=== PATIENT | female | born 2000 | race Caucasian/White ===

== ENCOUNTER 2024-10-17 11:45 | Outpatient (CLI) | payer BC, SELFPAY ==
[2024-10-17 18:28] LABS: Basophils # 0.1 K/mm3 (0-0.2); Basophils % 0.6 % (0.1-2.0); Eosinophils # 0.1 K/mm3 (0.0-0.4); Eosinophils % 1.8 % (0.1-12.0); Hematocrit 45.8 % (37.0-47.0); Hemoglobin 15.2 g/dL (12.2-16.2); Lymphocytes # 2.8 K/mm3 (0.7-4.5); Lymphocytes % 35.8 % (10-50); Mean Corpuscular HGB Conc 33.2 g/dL (31.8-35.4); Mean Corpuscular Hemoglobin 28.2 pg (27.0-31.2); Mean Platelet Volume 10.4 fl (7.4-10.4); Monocytes # 0.4 K/mm3 (0.1-1.0); Monocytes % 4.5 % (1.7-9.3); Neutrophils # 4.5 K/mm3 (1.8-7.8); Neutrophils % 56.9 % (37.0-80.0); Platelet Count 402 K/mm3 (142-424); Red Blood Count 5.39 M/mm3 (4.20-5.40); Red Cell Distribution Width 12.5 % (11.5-17.5); White Blood Count 7.8 K/mm3 (4.8-10.8)
[2024-10-17 19:30] LABS: Albumin Level 5.2 g/dl (3.5-5.0); Chloride 99 mmol/L (98-107); Potassium 4.4 mmoL/L (3.5-5.1); Sodium 137 mmol/L (136-145)
[2024-10-17 19:32] LABS: Alanine Aminotransferase 38 U/L (12-78); Aspartate Amino Transferase 33 U/L (14-36); Blood Urea Nitrogen 13 mg/dl (7-17); Estimated Glomerular Filt Rate 198 ml/min (>60); GFR (African American) 239 ML/MIN (>60)
[2024-10-17 19:33] LABS: Albumin/Globulin Ratio 1.9 (1.1-1.8); Alkaline Phosphatase 82 U/L (38-126); Anion Gap 19.4 mEq/L (5-15); Bilirubin,Total 0.4 mg/dl (0.2-1.3); Calcium 9.7 mg/dl (8.4-10.2); Carbon Dioxide 23 mmol/L (22.0-30.0); Chol/HDL Ratio 4.8 (1-3.5); Cholesterol 179 mg/dl (140-200); Globulin 2.7 g/dL (1.3-3.2); Glucose 220 mg/dl (74-100); HDL Cholesterol 37 mg/dl (40-60); Total Protein,Serum 7.9 g/dl (6.3-8.2); Triglycerides 216 mg/dl (30-150); VLDL Cholesterol 43 mg/dL (0-40)
[2024-10-17 19:44] LABS: 25-OH Vitamin D, Total 15.6 ng/mL (30-100); Free T4 (Free Thyroxine) 1.09 ng/dl (0.78-2.19)
[2024-10-17 20:07] LABS: Direct LDL Cholesterol 114.41 mg/dL (100-129)
[2024-10-17 20:19] LABS: Thyroid Stimulating Hormone 1.53 uIU/mL (0.465-4.68)
== END 2024-10-17 23:59 | disposition home or self-care (01) ==
LOC: LAB.DROPOF 10-18 10:58
PROVIDERS: PCP Family Medicine; Visit Provider Family Medicine
DX: E11.9 Type 2 diabetes mellitus without complications (principal); E55.9 Vitamin D deficiency, unspecified; L90.0 Lichen sclerosus et atrophicus; L30.4 Erythema intertrigo; G43.909 Migraine, unspecified, not intractable, without status migrainosus
CPT/HCPCS: 80053; 80061; 82306; 84439; 84443; 85025

== ENCOUNTER 2025-04-03 08:48 | Emergency (ER) | payer BC, SELFPAY ==
[2025-04-03 08:58] VITALS: BP 129/76; PULSE 98; RESP 13; TEMP 37.1; O2SAT 99; BMI 33.8
--- NOTE | 2025-04-03 09:12 | HMH.EDGENADL ---
Discharge Plan Disposition Patient Disposition: Home, Self-Care Condition: Good Prescriptions Prescriptions: No Action (DME) Dexcom G7 Sensor Device See Rx Instructions .Route Qty: 3 5RF Rx Instructions: As directed betamethasone dipropionate 0.05 % ointment 1 applic topical DAILY Qty: 45 4RF Rx Instructions: please apply nightly for 12 weeks clobetasol 0.05 % ointment 1 applic topical BID Qty: 30 0RF Rx Instructions: apply BID to rash on legs and perineum buspirone 10 mg tablet 10 mg PO TID Qty: 90 5RF amitriptyline 50 mg tablet 50 mg PO HS Qty: 30 5RF sumatriptan succinate 100 mg tablet See Rx Instructions PO .COMPLEX Qty: 9 5RF Rx Instructions: take 1 tab at onset of headache; if no relief, may repeat 1 tab after at least 2 hrs; max = 2 tabs/24 hrs PO terbinafine HCl [Lamisil AT] 1 % cream 1 applic topical BID Qty: 30 0RF Rx Instructions: apply bid to rash in groin, and in folds behind knees. mupirocin 2 % ointment 1 applic topical BID Qty: 15 0RF Rx Instructions: apply bid x 7 days to skin lesion mid lower back (DME) Dexcom G7 Machine Striper Misc See Rx Instructions .Route Qty: 1 0RF Rx Instructions: As directed Ozempic 1 mg/dose (4 mg/3 mL) pen injector 1 mg SQ WEEKLY Qty: 3 0RF Referrals Follow up/Referrals: Kirk Plaza MD [Primary Care Provider, Family Practice] - See instructions Activity Restrictions/Add. Instructions Additional Instructions/Restrictions: Take Tylenol and ibuprofen every 6 hours for the next [address] heat and ice on the areas that are sore. You can use the crutches as needed to bear weight and you can start to put more weight on the right lower extremity as tolerated. If you continue to have severe pain and unable to ambulate in 7 to 10 days please return to the emergency department or follow-up with your primary care provider. Clinical Impressions Clinical Impression: Ankle sprain Instructions Patient Instructions: DI for Ankle Sprain Print Language Print Language: Citizen Of [place] Discharge ED Provider: Chelly Dietrich Adult HPI General Chief complaint: PAIN Stated complaint: [id number]- Pain/swelling/ tingling R ankle Time Seen by Provider: 04/03/25 08:53 Mode of Arrival: Wheelchair Source of Information: Patient Description of Symptoms (Recalled from ER Triage Doc. by RN): pt presents to ED with c/o right ankle pain. pt reports she was walking down the stairs in the rain and she twisted her right ankle. pt reprots she felt her ankle pop. pt reports pain from toes to knees. pt reports swelling noted at ankle. History of Present Illness HPI narrative: Patient is a 25-year-old female with no significant past medical history who presented to the emergency department with right ankle pain. Patient states that she fell twisted her right ankle. Patient is reporting pain at her right ankle up to her right knee. Patient was able to get up and initially able to bear weight but then reported worsening pain and had to get help from her dad. Patient denies any prior surgical history. Patient denies any hardware in the right ankle. Patient denies any numbness or weakness. Patient does not take any daily medications. Patient denies any other prior surgical history. Related Data Previous Rx's ?Medication ?Instructions ?Recorded amitriptyline 50 mg tablet 50 mg PO HS #30 tabs 10/17/24 blood-glucose,new autos delivery driver,cont #1 ea 10/17/24 (Dexcom G7 Machine Striper) buspirone 10 mg tablet 10 mg PO TID #90 tabs 10/17/24 clobetasol 0.05 % topical ointment 1 applic topical BID #30 grams 10/17/24 mupirocin 2 % topical ointment 1 applic topical BID #15 grams 10/17/24 sumatriptan succinate 100 mg tablet See Rx Instructions PO .COMPLEX #9 10/17/24 tabs terbinafine HCl 1 % topical cream 1 applic topical BID #30 grams 10/17/24 (Lamisil AT) betamethasone dipropionate 0.05 % 1 applic topical DAILY #45 grams 11/18/24 topical ointment blood-glucose sensor (Dexcom G7 #3 ea 11/18/24 Sensor device) semaglutide 1 mg/dose (4 mg/3 mL) 1 mg (0.75 mL) SQ WEEKLY #3 mL 12/20/24 subcutaneous pen injector ([employer]) Allergies Allergy/AdvReac Type Severity Reaction Status Date / Time No Known Allergies Allergy Verified 02/09/25 11:00 [facility] Disclaimer: The information contained in this section may have been updated after the patient was seen, as this information can be updated by other users. Medical History (Reviewed 02/09/25 @ 11: by Caesar Olmos MA) PCOS (polycystic ovarian syndrome) Migraine Intertrigo Lichen sclerosus Diabetes mellitus Surgical History (Reviewed 02/09/25 @ 11: by Caesar Olmos MA) Hx of appendectomy History of tonsillectomy and adenoidectomy H/O: Family History Other No significant family history Social History (Reviewed 02/09/25 @ 11: by Caesar Olmos MA) Smoking Status: Never smoker alcohol intake: former substance use type: denies use current occupational status: employed Travel in the last 8 weeks?: None Have you lived/traveled outside US in past 30 days?: No Contact w/someone who lives/traveled outside US past 30 days?: No Exposure to someone with infectious disease in past 14 days?: No Do you have a fever (greater than 100.4 F or 38 C)?: No Have you tested positive for COVID-19?: No Exposed to someone with COVID-19 in past 14 days?: No Do you have a sore throat?: No Do you have a cough?: No Do you have any weakness?: No Do you have any diarrhea?: No Are you experiencing any unusual bleeding?: No Do you have any muscle aches/pain?: No Do you have any abdominal pain?: No Are you experiencing loss of taste or smell?: No ROS Obtained: Yes All systems reviewed & no additional complaints except as documented and Yes Systems reviewed as appropriate & no additional complaints except as documented Physical Exam General General appearance: alert and in no apparent distress Head Head exam: atraumatic, normocephalic and normal inspection Eye Eye exam: Present normal appearance, PERRL and EOMI; Absent scleral icterus ENT ENT exam: Present normal exam and normal external ear exam Neck Neck exam: Present normal inspection and full ROM Chest Chest inspection: Present normal inspection, symmetric chest wall rise and other (2+ DP pulse in the right lower extremity) Respiratory Respiratory exam: Present normal lung sounds bilaterally; Absent respiratory distress or wheezes Cardiovascular Cardiovascular exam: Present regular rate, normal rhythm and normal heart sounds Abdominal Exam Abdominal exam: Present soft and distention; Absent tenderness, guarding or rebound Extremities Exam Extremities exam: Present normal inspection, full ROM and other (Right ankle with tenderness at the medial and lateral malleolus some tenderness along the lateral knee no swelling, no bruising, mildly decreased range of motion secondary to pain) Back Exam Back exam: Present normal inspection and full ROM Neurological Exam Neurological exam: Present alert, oriented X3 and other (Normal strength and sensation in the right lower extremity) Psychiatric Psychiatric exam: Present normal affect and normal mood Skin Skin exam: Present warm and dry Medical Decision Making Medical Records Screening: Per USPSTF and CDC recommendations, given the prevalence of disease in our region, it is our hospital?s policy to screen for HIV and viral Hepatitis for all patients aged 18 and over and those with ongoing risk factors. Reggie Inquiry Pt receiving controlled substance: No Vital Signs: 04/03/25 08:58 04/03/25 10:00 04/03/25 11:22 Temperature 98.8 F 98.7 F Temperature Source Oral Oral Pulse Rate 94 H 79 Pulse Rate [Left Radial] 98 H Respiratory Rate 13 18 15 Blood Pressure 133/70 114/76 Blood Pressure [Right Arm] 129/76 Blood Pressure Mean [Right Arm] 93 Blood Pressure Source Automatic Cuff Blood Pressure Source [Right Arm] Automatic Cuff Blood Pressure Position Supine Blood Pressure Position [Right Arm] Supine 02 Sat by Pulse Oximetry 99 96 Oxygen Delivery Method Room Air Room Air Lab Data Lab results reviewed: Yes I reviewed the patient's lab results. Orders (Tests/Meds): ED MEDICATIONS Discontinued Medications Generic Name Dose Route Start Last Admin Trade Name Freq PRN Reason Stop Dose Admin Oxycodone/Acetaminophen 1 each 04/03/25 09:27 04/03/25 09:59 Oxycodone 5mg W/Apap 325mg Tablet PO 04/03/25 09:28 1 each ONCE ONE Administration ORDERS Category Date Time Status Ankle XR -Right minimum 3 Views [XR ankle RT min 3V] Exams 04/03/25 09:27 Completed Stat Foot XR right minimum 3 views [XR foot RT min 3V] Stat Exams 04/03/25 09:27 Completed Knee XR right 3 views [XR knee RT 3V] Stat Exams 04/03/25 09:27 Completed Tibia/fibula XR right 2 views [XR tibia fibula RT 2V] Exams 04/03/25 09:27 Completed Stat Medical Decision Narrative: Patient is a 25-year-old female with no significant past medical history who presented to the emergency department with right ankle pain. On arrival, patient was hemodynamically stable with unremarkable vital signs. Differential includes but not limited to: Fracture, dislocation, sprain, strain, amongst others. Patient was given Tylenol, ibuprofen in the emergency department. X-rays were reviewed and interpreted by myself and showed no acute fracture dislocation or other acute pathology. Patient likely with a musculoskeletal sprain at this time. Patient was given an Tang bandage, patient was given crutches for symptomatic management. Patient was instructed to bear weight as tolerated continue symptomatic management at home. Return precautions were discussed and patient was otherwise discharged home in stable condition. Critical Care Critical Care Time Critical Care Time: No
--- OUTSIDE RECORDS SUMMARY | 2025-04-03 09:18 | XMS_ITS | Encounter Summary ---
Author Organization Healthcare Address [address] [place] [address] Care Team Providers Care Blending Tank Tender Helper Name Role Phone Susanna Anand APRN Primary Care Provider [phone] Reason for Visit * Reason Comments Med Refill Encounter Details Date Type Department Care Team (Late st Contact Info) Description 10/16/2022 [facility] [address] [place] [address] Susanna Anand APRN [address] [place] [address] Social History Tobacco Use Types Packs/Day Years Used Date Smoking Tobacco: Never Smokeless Tobacco: Never Alcohol Use Standard Drinks/Week Comments Not Currently 0 (1 standard drink = 0.6 oz pur e alcohol) PHQ-2 Answer Date Recorded Patient Health Questionnaire-2 Score 1 10/10/2022 [place] Depression Scale Answer Date Recorded [place] Depression Scale Total 13 10/31/2021 The thought of harming myself has occurred to me . Never 10/31/2021 PHQ-2A Answer Date Recorded Patient Health Questionnaire-2 Score 1 10/10/2022 Comments No Sex and Gender Information Value Date Recorded Sex Assigned at Female 08/26/2021 9:43 AM EST Legal Sex Female 8:02 PM EDT Gender Identity Female 08/26/2021 9:43 AM EST Sexual Orientation Straight 08/26/2021 9: 43 AM EST COVID-19 Exposure Response Date Recorded In the last 10 days, have yo u been in contact with someone who was confirmed or suspected to have Coronavirus/COVID-19? No / Unsure 10/10/2022 7:35 AM EST documented as of this encounter Miscellaneous Notes * Telephone Encounter - Chelly Dickens - 10/16/2022 12:03 PM EST Pt aware. * Telephone Encounter - Clementine Cantu - 10/16/2022 11:43 AM EST Returning call * Telephone Encounter - Chelly Dickens - 10/16/2022 11:38 AM EST Lmtrc x1 documented in this encounter Plan of Treatment Not on file documented as of this encounter Visit Diagnoses Not on filedocumented in this encounter Additional Health Concerns Assessment Noted Time A Body Mass Index follow-up plan has been documented for the patient 10/10/2022 12:33 PM EST documented as of this encounter Care Teams Blending Tank Tender Helper Relationship Specialty Start Date End Date Susanna Anand APRN [address] [place] [address] PCP - General Family Medicine 08/20/22 documented as of this encounter
--- OUTSIDE RECORDS SUMMARY | 2025-04-03 09:18 | XMS_ITS | Clinical Summary ---
Author Organization [facility] Address [address] [place] [phone] Phone Care Team Providers Care Manufacturing Plant Technician Name Role Phone Unavailable Primary Care Provider Unavailabl e Allergies No known active allergies Medications ibuprofen (ADVIL;MOTRIN) 600 mg Oral Tablet Take 1 Tab by mouth every 6 hours as needed for Pain. 60 Tab 9 Active acetaminophen 325 mg Oral Tab Take 2 Tabs by mouth every 4 hours as needed for Pain. 60 Tab 9 Active pioglitazone (ACTOS) 15 mg Oral TabletIndication s:Metabolic syndrome,Severe obesity (BMI 35.0-39.9) with comorbidity (HCC),Elevated blood sugar Take 1 Tab by mouth daily. 90 Tab 1 1 Active Additional Information Patient not taking.Reason: Therapy Completed, Reported on 01/20/2023 topiramate (TOPAMAX) 25 mg Oral TabletIndication s:Migraine with aura and with status migrainosus, not intractable TAKE 1 TABLET BY MOUTH EVERY DAY AT NIGHT 30 Tab 2 1 Active Additional Information Patient not taking.Reason: Therapy Completed, Reported on 01/20/2023 vit no.[id number] c ( VITAMIN) 27 mg iron- 800 mcg Oral TabletIndication s:Positive blood test Take 1 Tablet by mouth daily. 30 Tablet 8 1 Active Additional Information Patient not taking.Reason: Therapy Completed, Reported on 01/20/2023 sertraline (ZOLOFT) 25 mg Oral TabletIndication s:History of depression Take 1 Tablet by mouth daily. 30 Tablet 2 2 Active Additional Information Patient not taking.Reason: Therapy Completed, Reported on 01/20/2023 norgestimate-eth inyl estradioL (ORTHO TRI-CYCLEN;TRI-S PRINTEC) 0.18/0.215/0.25 mg-35 mcg (28) Oral TabletIndication s:Family planning Take 1 Tablet by mouth daily. 30 Tablet 8 2 Active Additional Information Patient not taking.Reason: Therapy Completed, Reported on 01/20/2023 fluconazole (DIFLUCAN) 150 mg Oral TabletIndication s:Yeast vaginitis 1 now and repeat in 1 week 2 Tablet 2 Active Additional Information Patient not taking.Reason: Therapy Completed, Reported on 01/20/2023 estradioL (ESTRACE) 0.01 % (0.1 mg/gram) Vagl Cream 3 Active clobetasoL (TEMOVATE) 0.05 % Top Ointment 3 Active progesterone (PROMETRIUM) 200 mg Oral Capsule Take 200 mg by mouth. 2 Active Active Problems Problem Noted Date Diagnosed Date Gastroesophageal reflux disease 01/20/2023 Right lower quadrant pain 10/13/2018 Metabolic syndrome 03/18/2018 Low HDL (under 40) 03/18/2018 Morbid obesity with BMI of 40.0-44.9, adult 02/20 Hyperuricemia w/o signs of i nflam arthrit and tophaceous dis 03/18/2018 Environmental allergies Immunizations Immunization Administration Dates Next Due DTaP 07/02/2005, 3,2001,2000,2001 HPV 9 Valent 05/12/2019 HPV Quadrivalent 10/06/2012,07/21/2012 Hepatitis A, Ped/Adol, 2 Dose 05/12/2019, 018 Hepatitis B, Unspecified Formulation 2001, 2001,2001 HiB, Unspecified Formulation 09/29/2002, 2001,2001,2000 IPV 07/02/2005, 2,2001,2000 MMR 07/02/2005,09/29/2002 Meningococcal Conjugate 11/11/2017,07/21/2012 PPD Test 10/05/2018 Tdap 07/21/2012 Varicella 07/21/2012,09/29/2002 Surgical History Surgery Date Site/Laterality Comments TONSILLECTOMY TYMPANOSTOMY TUBE PLACEMENT PE tubes WISDOM TOOTH EXTRACTION Bilateral LAPAROSCOPIC APPENDECTOMY 10/14/2018 N/A LAPAROSCOPIC APPENDECTOMY; Surgeon: Sheng Chavez MD; Location: [facility]; Service: General APPENDECTOMY SECTION 10/03/2021 Medical History Medical History Date Comments Depression Hx of migraines H/O: pneumonia History of snoring Hypertension PCOS (polycystic ovarian syndrome) 2018 Borderline diabetes Family History Medical History Relation Name Comments No Known Problems Brother Diabetes Father Gout Father Cancer Maternal Grandfather Diabetes Maternal Grandfather High Blood Pressure Maternal Grandfather High Cholesterol Maternal Grandfather Cancer Maternal Uncle Kidney Disease Maternal Uncle kidney ston es Liver Disease Maternal Uncle Stroke Maternal Uncle Cancer Mother Migraines Mother Osteoarthritis Mother lap band Mother 2009 Diabetes Paternal Grandfather Heart Disease Paternal Grandfather High Blood Pressure Paternal Grandfather High Cholesterol Paternal Grandfather Stroke Paternal Grandfather Cancer Paternal Grandmother colon c ancer Diabetes Paternal Grandmother High Blood Pressure Paternal Grandmother High Cholesterol Paternal Grandmother Relation Name Status Comments Brother Alive Father Alive Maternal Grandfather Maternal Uncle Mother Alive Paternal Grandfather Paternal Grandmother Social History Tobacco Use Types Packs/Day Years Used Date Smoking Tobacco: Never Smokeless Tobacco: Never Tobacco Cessation:Counseling Given: Not Answered Alcohol Use Standard Drinks/Week Comments Not Currently 0 (1 standard drink = 0.6 oz pur e alcohol) very rarely Sexually Active Control Partners Comments Not Currently Comments No Sex and Gender Information Value Date Recorded Sex Assigned at Not on file Legal Sex Female 5:19 AM EDT Gender Identity Not on file Sexual Orientation Not on file Obstetrics History Last Filed Vital Signs Vital Sign Reading Time Taken Comments Blood Pressure 144/86 01/20/2023 12:31 PM EDT Pulse 94 02/20/2022 10:53 AM EDT Temperature 36.6 C (97.9 F) 02/20/2022 10:53 AM EDT Respiratory Rate 20 02/20/2022 10:53 AM EDT Oxygen Saturation 97% 02/20/2022 10:53 AM EDT Inhaled Oxygen Concentration - - Weight 123.4 kg (272 lb) 03/20/2023 12:10 PM EDT Height 169.5 cm (5' 6.75 ) 03/20/2023 12:10 PM E DT Body Mass Index 42.92 03/20/2023 12:10 PM EDT Plan of Treatment Health Maintenance Due Date Last Done Comments Annual Wellness Exam 10/09/2021 10/09/2020 COVID-19 Vaccine ( season) 2024 Influenza Vaccine (#1) 2025 , 11/11/2017 (Declined), 09/12/2016 (Declined), Additional history exists Cervical Cancer Screening 06/11/2025 Pap Smear 06/11/2025 06/11/2022, 05/23, 06/11/2022 DTaP/TDaP/Td (8 - Td or Tdap) 07/05/2031 07/05/2021, 07/21/2012, 07/02/2005, Additional history exists Hepatitis B Vaccine Completed 2001, 2001, 2001 HPV Completed 05/12/2019, 09/21, 07/21/2012 Meningococcal B Vaccine Aged Out No l onger eligible based on patient's age to complete this topic Pneumococcal Vaccine 0-49 Aged Out No longer eligible based on patient's age to complete this topic Goals Goal Patient Goal Type Associated Problems Recent Progress Patient-Stated? Author Blood Pressure < 140/90 Blood Pressure 144/86(2022 12:31 PM EDT) No Katty Hackett Maintain a healthy diet, exercise regularly and maintain an ideal body weight General No Katty Hackett Insurance AETNA POS [employer] [facility] [place] [address] AET[employer] POS [employer] [facility] [place] [address] [facility] [place] [address] AETNA POS AUTO ACCIDENT GENERIC on file [employer] Advance Directives For more information, please contact: [phone] * Full Code (Latest Code Status on File) Date Activated Date Inactivated Comments 10/13/2018 6:46 PM 10/15/2018 2:30 PM
--- OUTSIDE RECORDS SUMMARY | 2025-04-03 09:18 | XMS_ITS | Clinical Summary ---
Author Organization Healthcare Address [address] [place] [address] Care Team Providers Care Sampler First Name Role Phone ChengSusanna Jacob RADFORD Primary Care Provider [phone] Allergies No known active allergies Medications sertraline (Zoloft) 25 MG tabletIndication s:Mild episode of recurrent major depressive disorder (CMS/HCC) Take 1 tablet (25 mg total) by mouth 1 (one) time each day. 90 tablet 1 08/11/2022 Active ibuprofen 800 MG tablet Take 1 tablet (800 mg total) by mouth every 8 (eight) hours if needed for headaches. 30 tablet 08/11/2022 Active semaglutide (Ozempic, 0.25 or 0.5 MG/DOSE,) 2 MG/1.5ML solution pen-injector inj. penIndications:C lass 3 severe obesity due to excess calories without serious comorbidity with body mass index (BMI) of 40.0 to 44.9 in adult Inject 0.375 mL (0.5 mg total) under the skin 1 (one) time per week. 1 each 10/10/2022 Active norgestimate-eth inyl estradiol (Sprintec 28) 0.25-35 MG-MCG tablet Take 1 tablet by mouth 1 (one) time each day. 84 tablet 4 10/24/2022 Active progesterone (Prometrium) 200 MG capsule Take 1 capsule (200 mg total) by mouth every night for 10 days. Take every 3 months to jump start period if hasn't had one on her own. 10 capsule 1 02/06/2023 Active clobetasol (Temovate) 0.05 % ointmentIndicati ons:Lichen sclerosus AAA QAM 60 g 3 02/09/2024 Active estradiol (Estrace) 0.1 MG/GM vaginal creamIndications :Lichen sclerosus Apply to vulva at bedtime as directed. 42.5 g 3 02/09/2024 Active Active Problems Problem Noted Date Diagnosed Date Subacute vaginitis 05/14/2022 Assessment & Plan (05/14/2022 5:03 PM EDT): - oneswab done today - Diflucan Rx sent - RTC as needed 36 weeks gestation of 09/16/2021 Type 2 diabetes mellitus aff ecting in third trimester, antepartum 09/16/2021 Vaginitis affecting pregnanc y in third trimester, antepartum 09/16/2021 Essential hypertension 07/18/2021 Hypertension 07/18/2021 High blood pressure 07/18/2021 Borderline high blood pressure 07/18/2021 Environmental allergies 05/08/2021 Right lower quadrant pain 10/13/2018 Hyperuricemia w/o signs of i nflam arthrit and tophaceous dis 03/18/2018 Metabolic syndrome 03/18/2018 Severe obesity (BMI 35.0-39.9) with comorbidity 03/18/2018 Immunizations Immunization Administration Dates Next Due DTaP 07/02/2005, 3,2001,08/05,2001 HPV 9-Valent 05/12/2019 HPV, Quadrivalent 10/06/2012,07/21/2012 Hep A, ped/adol, 2 dose 05/12/2019,11/11/2017 Hep B, Unspecified 2001,2001, 001 HiB, unspecified 09/29/2002, 2,2001,05/06 IPV 07/02/2005, 2,2001,05/06 Influenza, injectable, quadr ivalent, preservative free 06/21/2021 MMR 07/02/2005,09/29/2002 Meningococcal MCV4P 11/11/2017,07/21/2012 PPD Skin Test (TB Skin Test) 10/05/2018 Tdap 07/05/2021,07/21/2012 Varicella 07/21/2013,07/21/2012,09/29/2002 Family History Medical History Relation Name Comments Diabetes Father Melanoma Mother Relation Name Status Comments Father Mother Social History Tobacco Use Types Packs/Day Years Used Date Smoking Tobacco: Never Smokeless Tobacco: Never Tobacco Cessation:Counseling Given: Not Answered Alcohol Use Standard Drinks/Week Comments Not Currently 0 (1 standard drink = 0.6 oz pur e alcohol) PHQ-2 Answer Date Recorded Patient Health Questionnaire-2 Score 1 10/10/2022 Alderson Depression Scale Answer Date Recorded Alderson Depression Scale Total 13 10/31/2021 The thought [...] Orientation Straight 08/26/2021 9: 43 AM EST Last Filed Vital Signs Vital Sign Reading Time Taken Comments Blood Pressure 129/84 04/24/2023 10:43 AM EDT Pulse 100 04/24/2023 10:43 AM EDT Temperature 36.9 C (98.5 F) 11/07/2022 9:10 AM EST Respiratory Rate 14 04/24/2023 10:43 AM EDT Oxygen Saturation 98% 04/24/2023 10:43 AM EDT Inhaled Oxygen Concentration - - Weight 130 kg (285 lb 15 oz) 04/24/2023 10:43 AM EDT Height 170.2 cm (5' 7 ) 04/24/2023 10:43 AM EDT Body Mass Index 44.78 04/24/2023 10:43 AM EDT Plan of Treatment Health Maintenance Due Date Last Done Comments [facility]-/Child/Adol SDOH Screenings 2001 [facility]- SDOH Screenings 2019 [facility]-Adult SDOH Screenings 2019 [facility]-Pneumococcal Vaccine: Pediatrics (0 to 5 Years) and At-Risk Patients (6 to 49 Years) (1 of 2 - PCV) 2020 [facility]-Depression Screening 10/10/2023 10/10/2022, 10/22 [id number] Vaccine ( season) 2024 [facility]-Influenza Vaccine (#1) 2025 06/21/2021 [facility]-Pap Smear 06/11/2025 06/11/2022 [facility]-DTaP,Tdap,and Td Vaccines (8 - Td or Tdap) 07/05/2031 07/05/2021, 07/21/2012, 07/02/2005, Additional history exists [facility]-Zoster Vaccines (1 of 2) 2051 07/21/2013, 07/21/2012, 09/29/2002 [facility]-Hepatitis B Vaccines Completed 002, 2001, 2001 [facility]-HIB Vaccines Completed 09/29/2002, , 2001, Additional history exists [facility]-IPV Vaccines Completed 07/02/2005, , 2001, Additional history exists [facility]-Varicella Vaccines Completed 3, 07/21/2012, 09/29/2002 HPV Vaccines Completed 05/12/2019, 09/21, 07/21/2012 [facility]-Hepatitis A Vaccines Completed 05/12/2019, 10/23 [facility]-HIV Screening Completed 05/09/2021 [facility]-Hepatitis C Screening Completed 05/09/2021 [facility]-Diabetes: Hemoglobin A1C Discontinued 08/11/2022 [facility]-Obesity Intervention Completed 023, 11/07/2022, 10/24/2022, Additional history exists [facility]-Rotavirus Vaccines Aged Out No lo nger eligible based on patient's age to complete this topic Procedures Procedure Name Priority Date/Time Associated Diagnosis Comments HEMOGLOBIN A1C Routine 08/11/2022 1:13 PM EST Encounter to establish care Prediabetes Class 3 severe obesity due to excess calories without serious comorbidity with body mass index (BMI) of 40.0 to 44.9 in adult ([facility]) PAP TEST - CYTOLOGY Routine 06/11/2022 9 :33 AM EDT Encounter for annual routine gynecological examination HEPATITIS C ANTIBODY W/REFLEX TO HCV QUANT PCR Routine 05/09/2021 8:55 AM EDT Normal , incidental HIV 1/2 ANTIBODY/ANTIGEN SCREEN WITH REFLEX TO HIV I/II DIFFERENTIATION Routine 05/09/2021 8:55 AM EDT Normal , incidental from Last 3 Months or Most Recently Relevant to Health Maintenance Results * Hemoglobin A1c (08/11/2022 1:13 PM EST) Hemoglobin A1c 5.6 <5.7 % 08/11/2022 6:38 PM EST [facility] Blood Venous blood specimen / Unknown Venipuncture / Unknown 08/11/2022 1:13 PM EST 08/11/2022 1:19 PM EST Narrative [facility] - 08/11/2022 6:38 PM EST HA1C Interpretive Data: Diagnosis of Diabetes: Diabetic > or = 6.5% Pre-diabetic 5.7 to 6.4% Non-diabetic < or = 5.6% Glycemic Targets for Type I and Type II Diabetics: Non- Adults <7.0% Adults <6.0% Children and Adolescents <7.5% Source: [place] [employer]. Standards of medical care in diabetes,2017. Diabetes Care.2017:40 (suppl 1):S1-S135. HbA1c assay performed by an ion-exchange chromatography method that is certified traceable to the DCCT. us Susanna Anand APRN LAB BLOOD ORDERABLES Final Resu lt [facility] [address] [place] [address] * (ABNORMAL) Pap Smear (06/11/2022 9:33 AM EDT) Case Report Cytology Case: [id number] Authorizing Provider: Jacques Chavez MD Collected: 06/11/2022 0933 Ordering Location: Obstetrics & Gynecology Received: 06/12/2022 0940 First Screen: Georgia Moreno Pathologist: Lucila Soria MD Specimen: ThinPrep Pap Test, Liquid-Based Cervical/Vaginal, CERVICAL/VAGINAL 06/18/2022 1:43 PM EDT [facility] Interpretation LOW GRADE SQUAMOUS INTRAEPITHELIAL LESION (LSIL)(A) 06/18/2022 1:43 PM EDT [facility] at 1343 EDT Specimen Adequacy Satisfactory for evaluation; endocervical/joyner sformation zone component present. Slide scanned and imaged by [employer] System with manual review of all selected huerta. 06/18/2022 1:43 PM EDT [facility] Cervical cytology is a screening test primarily for squamous cancers and precursors and has associated false negative and positive results. New technologies such as liquid based sampling may decrease but will not eliminate all false negative results. Regular screening and follow-up of unexplained clinical signs and symptoms are recommended to minimize false negative results. Please see the ASCCP website (www.asccp.org)fo r followup recommendations. If HPV testing was requested, correlation with the results is suggested (please call Microbiology at [phone] for results). 06/18/2022 1:43 PM EDT [facility] Menstrual Status Not Applicable 05/23 1:43 PM EDT [facility] History of Hysterectomy Not Applicable 06/18/2022 1:43 PM EDT [facility] Contraceptive History Not Applicable 06/18/2022 1:43 PM EDT [facility] Screening Type Routine Screen 2021 1:43 PM EDT [facility] High Risk? No 06/18/2022 1:43 PM EDT [facility] HPV Testing Requested? Request HPV Testing if ASCUS (Women 25 Years or Older) 06/18/2022 1:43 PM EDT [facility] Previous Cancer History No 06/18/2022 1:43 PM EDT [facility] Clinical Information Z01.419 - Encounter for annual routine gynecological examination [ICD-10-CM] 06/18/2022 1:43 PM EDT [facility] Swab Vaginal and cervical cytologic material / Unknown Non-blood Collection / Unknown 06/11/2022 9:33 AM EDT 06/12/2022 9:40 AM EDT Jacques Chavez MD LAB CYTOLOGY ORDERABLES Final R esult Performing Organization Address [facility] Co de Phone Number [facility] [address] [place] [address] * HIV 1 & 2 Antibody/Antigen Screen (05/09/2021 8:55 AM EDT) HIV 1 & 2 Antibody/Anti gen Screen Nonreactive Nonreactive 05/09/2021 2:45 PM EDT [facility] Blood Venous blood specimen / Unknown Venipuncture / Unknown 05/09/2021 8:55 AM EDT 05/09/2021 1:58 PM EDT Result Felix Chavez MD LAB BLOOD ORDERABLES Final Resu lt Performing Organization Address [facility] Co de Phone Number [facility] [address] [place] [address] * Hepatitis C Antibody (05/09/2021 8:55 AM EDT) Hepatitis C Antibody Negative Negative 05/09/2021 2:45 PM EDT [facility] Blood Venous blood specimen / Unknown Venipuncture / Unknown 05/09/2021 8:55 AM EDT 05/09/2021 1:58 PM EDT Result Felix Chavez MD LAB BLOOD ORDERABLES Final Resu lt Performing Organization Address [facility] de Phone Number [facility] [address] [place] [address] from Last 3 Months or Most Recently Relevant to Health Maintenance Insurance [employer] Care Teams Sampler First Relationship Specialty Start Date End Date Susanna Anand APRN [address] [place] [address] PCP - General Family Medicine 08/20/22
--- OUTSIDE RECORDS SUMMARY | 2025-04-03 09:18 | XMS_ITS | Clinical Summary ---
Author Organization [facility] Address [address] [place] [address] Phone [email or web address] Care Team Providers Care Gage Maker Name Role Phone Unavailable Primary Care Provider Unavailabl e Allergies No known active allergies Medications topiramate (TOPAMAX) 25 MG tablet TAKE 1 TABLET BY MOUTH EVERY DAY AT NIGHT 11/05/2020 Active pioglitazone (ACTOS) 15 MG tablet Take 15 mg by mouth 1 (one) time each day. 10/09/2020 Active ondansetron (ZOFRAN) 4 MG tablet 12/24/2020 Active Active Problems No known active problems Social History Tobacco Use Types Packs/Day Years Used Date Smoking Tobacco: Never Smokeless Tobacco: Never Intimate Partner Violence Answer Date R ecorded Insults You Not on file 12/31/2020 Threatens You Not on file 12/31/2020 Screams at You Not on file 12/31/2020 Physically Hurt Not on file 12/31/2020 Intimate Partner Violence Score Not on file 12/31/2020 Stress Answer Date Recorded Stress in your Life Not on file 07/27/2024 Dealing with Stress 3 07/27/2024 Comments Unknown Sex and Gender Information Value Date Recorded Sex Assigned at Not on file Legal Sex Female 2:56 PM CDT Gender Identity Not on file Sexual Orientation Not on file Plan of Treatment Health Maintenance Due Date Last Done Comments Dental Cleaning/Exam 2001 HIV Screening 2001 Hepatitis C Screening 2001 HPV Immunization (3 - 2-dose series) 01/18/2013 10/06/2012, 07/21/2012 Cervical Cancer Screening 2017 Annual Preventive Exam 2019 Hep B Infection Screening - Triple Screen 2019 Tetanus Diphtheria and Pertussis Immunization (7 - Td or Tdap) 07/21/2022 07/21/2012, 07/02/2005, 09/29/2002, Additional history exists Covid-19 Immunization ( season) 2024 Influenza Immunization (#1) 2025 Hepatitis B Immunization Completed 002, 2001, 2001 HIB Immunization Completed 09/29/2002, , 2001, Additional history exists Polio Immunization Completed 07/02/2005, 0 2001, 2001, Additional history exists Varicella Immunization Completed 07/21/2012, 2002 Meningococcal Immunization Completed 11/11/2017, Hepatitis A Immunization Completed 05/12/2019, 10/23 Men B Immunization Aged Out No longer eligible based on patient's age to complete this topic Pneumococcal: Ped (0 to 5 Yrs) and At-Risk Member (6 to 64 Yrs) Aged Out No longer eligible based on patient's age to complete this topic Insurance OPT OUT NO COPAY NB
--- NOTE | 2025-04-03 09:27 | XR_ITS ---
FINAL REPORT CLINICAL HISTORY: fall, tender FINDINGS: RIGHT ANKLE 3 views of the right ankle were obtained. There is no acute fracture or dislocation. The mortise is intact. Visualized joint spaces are normally aligned. Soft tissues are unremarkable. IMPRESSION: No acute bony abnormality. Reviewed, Interpreted and Dictated by Dandre Herr MD Transcribed by Brandy Huynh Authenticated and [facility]
--- NOTE | 2025-04-03 09:27 | XR_ITS ---
FINAL REPORT CLINICAL HISTORY: fall, tender FINDINGS: RIGHT KNEE 3 views of the right knee were obtained. There is no acute fracture or dislocation. Visualized joint spaces are normally aligned. Soft tissues are unremarkable. IMPRESSION: No acute bony abnormality. Reviewed, Interpreted and Dictated by Dandre Herr MD Transcribed by Brandy Huynh Authenticated and [facility]
--- NOTE | 2025-04-03 09:27 | XR_ITS ---
FINAL REPORT CLINICAL HISTORY: fall, tender FINDINGS: RIGHT FOOT 3 views of the right foot were obtained. There is no acute fracture or dislocation. Visualized joint spaces are normally aligned. Soft tissues are unremarkable. IMPRESSION: No acute bony abnormality. Reviewed, Interpreted and Dictated by Dandre Herr MD Transcribed by Brandy Huynh Authenticated and [facility]
--- NOTE | 2025-04-03 09:27 | XR_ITS ---
FINAL REPORT CLINICAL HISTORY: fall, tender FINDINGS: RIGHT TIBIA AND FIBULA There is no acute fracture or dislocation. The joint spaces are intact. There is no soft tissue abnormality. IMPRESSION: No acute fracture Reviewed, Interpreted and Dictated by Dandre Herr MD Transcribed by Brandy Huynh Authenticated and [facility]
[2025-04-03] MEDS: OXYCODONE 5MG W/APAP 325MG TABLET 1 EACH PO (09:59)
[2025-04-03 10:00] VITALS: BP 133/70; PULSE 94; RESP 18; O2SAT 96
--- NOTE | 2025-04-03 11:02 | PC.NURSE ---
Patients ankle was wrapped and she was provided with crutches.
[2025-04-03 11:22] VITALS: BP 114/76; PULSE 79; RESP 15; TEMP 37.1; O2SAT 99
== END 2025-04-03 11:26 | disposition home or self-care (01) ==
PROVIDERS: Emergency Provider Student in an Organized Health Care Education/Training Program; PCP Family Medicine
DX: S93.401A Sprain of unspecified ligament of right ankle, initial encounter (principal); X50.1XXA Overexertion from prolonged static or awkward postures, initial encounter
CPT/HCPCS: 73562; 73590; 73610; 73630; 99284

== ENCOUNTER 2025-04-21 10:26 | Outpatient (CLI) | payer BC, SELFPAY ==
--- OUTSIDE RECORDS SUMMARY | 2025-04-21 10:28 | XMS_ITS | Clinical Summary ---
Author Organization [facility] Address [address] [place] [address] Care Team Providers Care Residential Instructor Name Role Phone Red Maza Primary Care Provider [phone] Allergies No known active allergies Medications ondansetron ODT (ZOFRAN-ODT) 4 MG disintegrating tabletIndications: Nausea Place 1 tablet on the tongue Every 8 (Eight) Hours As Needed for Nausea or Vomiting. 20 tablet 5 04/20/20 24 Active vitamin D (ERGOCALCIFEROL) 1.25 MG (74676 UT) capsule capsuleIndications :Vitamin D deficiency Take 1 capsule by mouth 1 (One) Time Per Week. 5 capsule 5 04/26/20 24 Active clobetasol (TEMOVATE) 0.05 % ointment APPLY 1-2 GRAMS OF OINTMENT TOPICALLY TO AFFECTED AREA IN THE MORNING 06/17/20 24 Active Semaglutide,0.25 or 0.5MG/DOS, (Ozempic, 0.25 or 0.5 MG/DOSE,) 2 MG/3ML solution pen-injectorIndica tions:Uncontrolled type 2 diabetes mellitus with hyperglycemia Inject 0.5 mg under the skin into the appropriate area as directed 1 (One) Time Per Week. 3 mL 2 06/30/20 24 Active SUMAtriptan (Imitrex) 100 MG tabletIndications: Episodic migraine Take one tablet at onset of headache. May repeat dose one time in 2 hours if headache not relieved. 12 tablet 5 06/30/20 24 Active busPIRone (BUSPAR) 10 MG tabletIndications: Anxiety Take 1 tablet by mouth 3 (Three) Times a Day. 90 tablet 5 07/06/20 24 Active amitriptyline (ELAVIL) 50 MG tabletIndications: Chronic migraine without aura without status migrainosus, not intractable Take 1 tablet by mouth Every Night. 30 tablet 2 07/06/20 24 Active Active Problems Problem Noted Date Diagnosed Date Panic attacks 05/01/2024 Anxiety 05/01/2024 PCOS (polycystic ovarian syndrome) 05/01/2024 Morbid obesity 05/01/2024 Suspected sleep apnea 05/01/2024 Chronic migraine without aur a without status migrainosus, not intractable 05/01/2024 Encounters Date Type Department Care Team Description 02/16/[address] [facility] [address] [place] [address] Red Maza PA from Last 3 Months Family History Medical History Relation Name Comments Depression Father Depression Maternal Grandfather Diabetes Maternal Grandfather Diabetes Maternal Grandmother Depression Mother Relation Name Status Comments Father Alive Maternal Grandfather Maternal Grandmother Mother Alive Social History Tobacco Use Types Packs/Day Years Used Date Smoking Tobacco: Never Smokeless Tobacco: Never Tobacco Cessation:Counseling Given: Not Answered Alcohol Use Standard Drinks/Week Comments Never 0 (1 standard drink = 0.6 oz pur e alcohol) Abuse Screen Answer Date Recorded Unsafe at Home or Work/School Not on file Feels Threatened by Someone? Not on file Does Anyone Keep You from Co ntacting Others or Doint Things Outside the Home? Not on file 07/03/2023 Physical Sign of Abuse Present Not on file 1 Housing Stability Answer Date Recorded Current Living Arrangements Not on file 06/21 Potentially Unsafe Housing Conditions Not on chung e 07/03/2023 Family and Community Support Answer Aleksey e Recorded Help with Day-to-Day Activities Not on file 07/03/2023 Lonely or Isolated Not on file 07/03/2023 Employment Answer Date Recorded Do you want help finding or keeping work or a ivonne b? Not on file 07/03/2023 Disabilities Answer Date Recorded Concentrating, Remembering, or Making Decisions Difficulty Not on file 07/03/2023 Doing Errands Independently Difficulty Not on fi le 07/03/2023 Education Answer Date Recorded Help with school or training? Not on file Preferred Language Not on file 07/03/2023 PHQ-2 Answer Date Recorded Retired PHQ-9: Brief Depression Severity Measure Score 1 04/20/2024 Comments Unknown Sex and Gender Information Value Date Recorded Sex Assigned at Not on file Legal Sex Female 6:01 PM EST Gender Identity Not on file Sexual Orientation Not on file Last Filed Vital Signs Vital Sign Reading Time Taken Comments Blood Pressure 134/78 06/30/2024 4:08 PM EDT Pulse 105 06/30/2024 4:08 PM EDT Temperature 36.5 C (97.7 F) 06/30/2024 4:08 PM EDT Respiratory Rate - - Oxygen Saturation 96% 06/30/2024 4:08 PM EDT Inhaled Oxygen Concentration - - Weight 123 kg (271 lb) 06/30/2024 4:08 PM EDT Height 171.5 cm (5' 7.5 ) 06/30/2024 4:08 PM EDT Body Mass Index 41.82 06/30/2024 4:08 PM EDT Plan of Treatment Health Maintenance Due Date Last Done Comments Annual Gynecologic Pelvic and Breast Exam 2001 DIABETIC EYE EXAM 2011 DIABETIC FOOT EXAM 2011 URINE MICROALBUMIN-CREATININE RATIO (uACR) 2011 Pneumococcal Vaccine 0-49 (1 of 2 - PCV) 2020 COVID-19 Vaccine (1 - season) 2024 HEMOGLOBIN A1C 12/29/2024 06/30/2024, 07/09/2023, 08/11/2022, Additional history exists ANNUAL PHYSICAL 04/20/2025 04/20/2024 INFLUENZA VACCINE 06/21/2025 06/21/2021 PAP SMEAR 09/21/2025 09/21/2022 (Patient-Reported (Performed Externally)) TDAP/TD VACCINES (3 - Td or Tdap) 07/05/2031 07/05/2021, 07/21/2012 Hepatitis B Completed 2001, 07/22, 2001 HPV VACCINES Completed 05/12/2019, 09/21, 07/21/2012 HEPATITIS C SCREENING Completed 05/09/2021, 021 MENINGOCOCCAL B VACCINE Aged Out No l onger eligible based on patient's age to complete this topic Procedures Procedure Name Priority Date/Time Associated Diagnosis Comments POCT GLYCOSYLATED HEMOGLOBIN (HGB A1C) Routine 06/30/2024 4:30 PM EDT Uncontrolled type 2 diabetes mellitus with hyperglycemia from Last 3 Months or Most Recently Relevant to Health Maintenance Results * (ABNORMAL) POC Glycosylated Hemoglobin (Hb A1C) (06/30/2024 4:30 PM EDT) Hemoglobin A1C 9.3(A) 4.5 - 5.7 % [facility] Lot Number [id number] [facility] Expiration Date 03/10/26 [facility] Blood 06/30/2024 4:30 PM EDT Red CHEN POINT OF CARE TEST ORDERABLES Final Result [facility]
[address] [place] [address], from Last 3 Months or Most Recently Relevant to Health Maintenance Insurance AETNA Care Teams Residential Instructor Relationship Specialty Start Date End Date Red Maza PA [address] [place] [address] PCP - General Physician Third Helper 04/20/24
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
--- OUTSIDE RECORDS SUMMARY | 2025-04-21 10:28 | XMS_ITS | Clinical Summary ---
Author Organization [facility] Address [address] [place] [address] Phone [email or web address] Care Team Providers Care Garbage Truck Helper Name Role Phone Unavailable Primary Care Provider [...]
--- OUTSIDE RECORDS SUMMARY | 2025-04-21 10:28 | XMS_ITS | Clinical Summary ---
Author Organization Healthcare Address [address] [place] [address] Care Team Providers Care Medical Payment Poster Name Role Phone ChengSusanna Jacob RADFORD Primary Care Provider [phone] Allergies No known active allergies Medications sertraline [...] Recorded Patient Health Questionnaire-2 Score 1 10/10/2022 [place] Depression Scale Answer Date Recorded [place] Depression Scale Total 13 10/31/2021 The thought [...] PCV) 2020 [facility]-Depression Screening 10/10/2023 10/10/2022, 10/22 [id number] Vaccine ( season) 2024 [facility]-Influenza Vaccine (#1) [...] (BMI) of 40.0 to 44.9 in adult ([facility]) PAP TEST - CYTOLOGY Routine 06/11/2022 9 [...] Adults <6.0% Children and Adolescents <7.5% Source: [place] [employer]. Standards of medical care in diabetes,2017. Diabetes Care.2017:40 (suppl 1):S1-S135. HbA1c assay performed by an ion-exchange chromatography method that is certified traceable to the DCCT. us Susanna Anand APRN LAB BLOOD ORDERABLES Final Resu lt [facility] [address] [place] [address] * (ABNORMAL) Pap Smear (06/11/2022 9:33 AM EDT) Case Report Cytology Case: [id number] Authorizing Provider: Jacques Chavez MD Collected: 06/11/2022 0933 Ordering Location: Obstetrics & Gynecology Received: 06/12/2022 0940 First Screen: [place] Moreno Pathologist: Lucila Soria MD Specimen: ThinPrep Pap Test, Liquid-Based Cervical/Vaginal, CERVICAL/VAGINAL 06/18/2022 1:43 PM EDT [facility] Interpretation LOW GRADE SQUAMOUS INTRAEPITHELIAL LESION (LSIL)(A) 06/18/2022 1:43 PM EDT [facility] at 1343 EDT Specimen Adequacy Satisfactory for evaluation; endocervical/joyner sformation zone component present. Slide scanned and imaged by [employer] Imaging System with manual review of all selected huerta. 06/18/2022 1:43 PM EDT [facility] Cervical cytology is a screening [...] results is suggested (please call Microbiology at [phone] for results). 06/18/2022 1:43 PM EDT [facility] Menstrual Status Not Applicable 05/23 1:43 PM EDT [facility] History of Hysterectomy Not Applicable 06/18/2022 1:43 PM EDT [facility] Contraceptive History Not Applicable 06/18/2022 1:43 PM EDT [facility] Screening Type Routine Screen 2021 1:43 PM EDT [facility] High Risk? No 06/18/2022 1:43 PM EDT [facility] HPV Testing Requested? Request HPV Testing if ASCUS (Women 25 Years or Older) 06/18/2022 1:43 PM EDT [facility] Previous Cancer History No 06/18/2022 1:43 PM EDT [facility] Clinical Information Z01.419 - Encounter for annual routine gynecological examination [ICD-10-CM] 06/18/2022 1:43 PM EDT [facility] Swab Vaginal and cervical cytologic material / Unknown Non-blood Collection / Unknown 06/11/2022 9:33 AM EDT 06/12/2022 9:40 AM EDT Jacques Chavez MD LAB CYTOLOGY ORDERABLES Final R esult Performing Organization Address [facility] Co de Phone Number [facility] [address] [place] [address] * HIV 1 & 2 Antibody/Antigen Screen (05/09/2021 8:55 AM EDT) HIV 1 & 2 Antibody/Anti gen Screen Nonreactive Nonreactive 05/09/2021 2:45 PM EDT [facility] Blood Venous blood specimen / Unknown Venipuncture / Unknown 05/09/2021 8:55 AM EDT 05/09/2021 1:58 PM EDT Result Felix Chavez MD LAB BLOOD ORDERABLES Final Resu lt Performing Organization Address [facility] Co de Phone Number [facility] [address] [place] [address] * Hepatitis C Antibody (05/09/2021 8:55 AM EDT) Hepatitis C Antibody Negative Negative 05/09/2021 2:45 PM EDT [facility] Blood Venous blood specimen / Unknown Venipuncture / Unknown 05/09/2021 8:55 AM EDT 05/09/2021 1:58 PM EDT Result Felix Chavez MD LAB BLOOD ORDERABLES Final Resu lt Performing Organization Address [facility] de Phone Number [facility] [address] [place] [address] from Last 3 Months or Most Recently Relevant to Health Maintenance Insurance [employer]ET[employer] Care Teams Medical Payment Poster Relationship Specialty Start Date End Date Susanna Anand APRN [address] [place] [address] PCP - General Family Medicine 08/20/22
--- OUTSIDE RECORDS SUMMARY | 2025-04-21 10:28 | XMS_ITS | Encounter Summary ---
Author Organization Healthcare Address [address] [place] [address] Care Team Providers Care Expressive Art Therapist Name Role Phone Susanna Anand APRN Primary Care Provider [phone] Reason for Visit * Reason Comments Med Refill Encounter Details Date Type Department Care Team (Late st Contact Info) Description 10/16/2022 Refill [facility] [address] [place] [address] Susanna Anand APRN [address] [place] [address] Social History Tobacco Use Types Packs/Day Years Used Date Smoking Tobacco: Never Smokeless Tobacco: Never Alcohol Use Standard Drinks/Week Comments Not Currently 0 (1 standard drink = 0.6 oz pur e alcohol) PHQ-2 Answer Date Recorded Patient Health Questionnaire-2 Score 1 10/10/2022 [place] Depression Scale Answer Date Recorded [place] Depression Scale Total 13 10/31/2021 The thought [...] documented as of this encounter Care Teams Expressive Art Therapist Relationship Specialty Start Date End Date Susanna Anand APRN [address] [place] [address] PCP - General Family Medicine 08/20/22 documented as of this encounter
[2025-04-21 11:18] LABS: Alanine Aminotransferase 53 U/L (12-78); Albumin Level 5.0 g/dl (3.5-5.0); Albumin/Globulin Ratio 1.9 (1.1-1.8); Alkaline Phosphatase 78 U/L (38-126); Anion Gap 14.1 mEq/L (5-15); Aspartate Amino Transferase 46 U/L (14-36); Bilirubin,Total 0.4 mg/dl (0.2-1.3); Blood Urea Nitrogen 9 mg/dl (7-17); Calcium 10.2 mg/dl (8.4-10.2); Carbon Dioxide 23 mmol/L (22.0-30.0); Chloride 103 mmol/L (98-107); Cholesterol 180 mg/dl (140-200); Creatinine,Serum 0.40 mg/dl (0.52-1.04); Estimated Glomerular Filt Rate 196 ml/min (>60); GFR (African American) 237 ML/MIN (>60); Globulin 2.7 g/dL (1.3-3.2); Glucose 260 mg/dl (74-100); HDL Cholesterol 36 mg/dl (40-60); Potassium 4.1 mmoL/L (3.5-5.1); Sodium 136 mmol/L (136-145); Total Protein,Serum 7.7 g/dl (6.3-8.2); Triglycerides 215 mg/dl (30-150)
[2025-04-21 11:48] LABS: Thyroid Stimulating Hormone 1.89 uIU/mL (0.465-4.68)
== END 2025-04-21 23:59 | disposition home or self-care (01) ==
LOC: LAB 10:27
PROVIDERS: PCP Family Medicine; Visit Provider Family Medicine
DX: I10 Essential (primary) hypertension (principal); E11.9 Type 2 diabetes mellitus without complications
CPT/HCPCS: 36415; 80053; 80061; 84443

== ENCOUNTER 2025-09-12 09:33 | Outpatient (CLI) | payer BC, SELFPAY ==
--- OUTSIDE RECORDS SUMMARY | 2025-09-12 09:36 | XMS_ITS | Clinical Summary ---
Author Organization [facility] Address [address] [place] [address] Phone [email or web address] Care Team Providers Care Carrier Associate Name Role Phone Unavailable Primary Care Provider [...] Health Maintenance Due Date Last Done Comments Cervical Cancer Screening Combo 2001 Dental Cleaning/Exam 2001 HIV Screening 2001 HPV only / HPV + Pap 2001 Hepatitis C Screening 2001 Pap only testing 2001 HPV Immunization (3 - 2-dose series) 01/18/2013 10/06/2012, 07/21/2012 Annual Preventive Exam 2019 Hep B Infection Screening - Triple Screen 2019 Tetanus Diphtheria and Pertussis Immunization (7 - Td or Tdap) 07/21/2022 07/21/2012, 07/02/2005, 09/29/2002, Additional history exists Covid-19 Immunization ( season) 2025 Influenza Immunization (#1) 2025 Hepatitis B Immunization Completed 002, 2001, 2001 HIB Immunization Completed 09/29/2002, , 2001, Additional history exists Polio Immunization Completed 07/02/2005, 0 2001, 2001, Additional history exists Varicella Immunization Completed 07/21/2012, 2002 Meningococcal Immunization Completed 11/11/2017, Hepatitis A Immunization Completed 05/12/2019, 10/23 Men B Immunization Aged Out No longer eligible based on patient's age to complete this topic Pneumococcal Immunization Aged Out No longer eligible based on patient's age to complete this topic Insurance OPT OUT NO COPAY NB
--- OUTSIDE RECORDS SUMMARY | 2025-09-12 09:36 | XMS_ITS | Encounter Summary ---
Author Organization Healthcare Address [address] [place] [address] Care Team Providers Care Photogrammetry Airplane Pilot Name Role Phone Susanna Anand APRN Primary Care Provider [phone] Reason for Visit * Reason Comments Med Refill Encounter Details Date Type Department Care Team (Late st Contact Info) Description 10/16/2022 Refill [facility] [address] [place] [address] Susanna Anand APRN [address] [place] [address] Social History Tobacco Use Types Packs/Day Years Used Date Smoking Tobacco: Never Smokeless Tobacco: Never Alcohol Use Standard Drinks/Week Comments Not Currently 0 (1 standard drink = 0.6 oz pur e alcohol) PHQ-2 Answer Date Recorded Patient Health Questionnaire-2 Score 1 10/10/2022 [place] Depression Scale Answer Date Recorded [place] Depression Scale Total 13 10/31/2021 The thought [...] documented as of this encounter Care Teams Photogrammetry Airplane Pilot Relationship Specialty Start Date End Date Susanna Anand APRN [address] [place] [address] PCP - General Family Medicine 08/20/22 documented as of this encounter
--- OUTSIDE RECORDS SUMMARY | 2025-09-12 09:36 | XMS_ITS | Clinical Summary ---
Author Organization Healthcare Address [address] [place] [address] Care Team Providers Care Curtain Stitcher Name Role Phone ChengSusanna Jacob RADFORD Primary Care Provider [phone] Allergies No known active allergies Medications sertraline [...] Recorded Patient Health Questionnaire-2 Score 1 10/10/2022 [place] Depression Scale Answer Date Recorded [place] Depression Scale Total 13 10/31/2021 The thought [...] Health Maintenance Due Date Last Done Comments [facility]-Infant/Child/Adol SDOH Screenings 2001 [facility]- SDOH Screenings 2019 [facility]-Adult SDOH Screenings 2019 [facility]-Pneumococcal Vaccine: Pediatrics (0 to 5 Years) and At-Risk Patients (6 to 49 Years) (1 of 2 - PCV) 2020 [facility]-Depression Screening 10/10/2023 10/10/2022, 10/22 [id number] Vaccine ( season) 2025 [facility]-Influenza Vaccine (#1) 2025 06/21/2021 [facility]-Pap Smear [...] (BMI) of 40.0 to 44.9 in adult ([facility]) PAP TEST - CYTOLOGY Routine 06/11/2022 9 [...] Adults <6.0% Children and Adolescents <7.5% Source: [place] [employer]. Standards of medical care in diabetes,2017. Diabetes Care.2017:40 (suppl 1):S1-S135. HbA1c assay performed by an ion-exchange chromatography method that is certified traceable to the DCCT. us Susanna Anand APRN LAB BLOOD ORDERABLES Final Resu lt [facility] [address] [place] [address] * (ABNORMAL) Pap Smear (06/11/2022 9:33 AM EDT) Case Report Cytology Case: [id number] Authorizing Provider: Jacques Chavez MD Collected: 06/11/2022 0933 Ordering Location: Obstetrics & Gynecology Received: 06/12/2022 0940 First Screen: [place] Moreno Pathologist: Lucila Soria MD Specimen: ThinPrep Pap Test, Liquid-Based Cervical/Vaginal, CERVICAL/VAGINAL 06/18/2022 1:43 PM EDT [facility] Interpretation LOW GRADE SQUAMOUS INTRAEPITHELIAL LESION (LSIL)(A) 06/18/2022 1:43 PM EDT [facility] at 1343 EDT Specimen Adequacy Satisfactory for evaluation; endocervical/joyner sformation zone component present. Slide scanned and imaged by [employer] Imaging System with manual review of all selected huerta. 06/18/2022 1:43 PM EDT [facility] Cervical cytology is a screening [...] results is suggested (please call Microbiology at [phone] for results). 06/18/2022 1:43 PM EDT [facility] Menstrual Status Not Applicable 05/23 1:43 PM EDT [facility] History of Hysterectomy Not Applicable 06/18/2022 1:43 PM EDT [facility] Contraceptive History Not Applicable 06/18/2022 1:43 PM EDT [facility] Screening Type Routine Screen 2021 1:43 PM EDT [facility] High Risk? No 06/18/2022 1:43 PM EDT [facility] HPV Testing Requested? Request HPV Testing if ASCUS (Women 25 Years or Older) 06/18/2022 1:43 PM EDT [facility] Previous Cancer History No 06/18/2022 1:43 PM EDT [facility] Clinical Information Z01.419 - Encounter for annual routine gynecological examination [ICD-10-CM] 06/18/2022 1:43 PM EDT [facility] Swab Vaginal and cervical cytologic material / Unknown Non-blood Collection / Unknown 06/11/2022 9:33 AM EDT 06/12/2022 9:40 AM EDT Jacques Chavez MD LAB CYTOLOGY ORDERABLES Final R esult Performing Organization Address [facility] Co de Phone Number [facility] [address] [place] [address] * HIV 1 & 2 Antibody/Antigen Screen (05/09/2021 8:55 AM EDT) HIV 1 & 2 Antibody/Anti gen Screen Nonreactive Nonreactive 05/09/2021 2:45 PM EDT [facility] Blood Venous blood specimen / Unknown Venipuncture / Unknown 05/09/2021 8:55 AM EDT 05/09/2021 1:58 PM EDT Result Felix Chavez MD LAB BLOOD ORDERABLES Final Resu lt Performing Organization Address [facility] Co de Phone Number [facility] [address] [place] [address] * Hepatitis C Antibody (05/09/2021 8:55 AM EDT) Hepatitis C Antibody Negative Negative 05/09/2021 2:45 PM EDT [facility] Blood Venous blood specimen / Unknown Venipuncture / Unknown 05/09/2021 8:55 AM EDT 05/09/2021 1:58 PM EDT Result Felix Chavez MD LAB BLOOD ORDERABLES Final Resu lt Performing Organization Address [facility] de Phone Number [facility] [address] [place] [address] from Last 3 Months or Most Recently Relevant to Health Maintenance Insurance AETNA Care Teams Curtain Stitcher Relationship Specialty Start Date End Date Susanna Anand APRN [address] [place] [address] PCP - General Family Medicine 08/20/22
--- OUTSIDE RECORDS SUMMARY | 2025-09-12 09:37 | XMS_ITS | Clinical Summary ---
Author Organization [facility] Address [address] [place] [phone] Phone Care Team Providers Care Aircraft Instrument Mechanic Name Role Phone Unavailable Primary Care Provider [...] taking.Reason: Therapy Completed, Reported on 01/20/2023 vit no.[id number] ( VITAMIN) 27 mg iron- 800 [...] Exam 10/09/2021 10/09/2020 COVID-19 Vaccine ( season) 2025 Influenza Vaccine (#1) 2025 , 11/11/2017 (Declined), [...] General No Katty Hackett Insurance AETNA POS AET [place] [facility] [place] [address] AETNA POS AETNA [place] [facility] [place] [address] [facility] [place] [address] AETNA POS AUTO ACCIDENT GENERIC on file [place] [employer] Advance Directives For more information, please contact: [phone] * Full Code (Latest Code Status on File) Date Activated Date Inactivated Comments 10/13/2018 6:46 PM 10/15/2018 2:30 PM
--- OUTSIDE RECORDS SUMMARY | 2025-09-12 09:37 | XMS_ITS | Clinical Summary ---
Author Organization [facility] Address [address] [place] [address] Care Team Providers Care Bookkeeper Assistant Name Role Phone Red Maza Primary Care Provider [phone] Allergies No known active allergies Medications ondansetron ODT (ZOFRAN-ODT) 4 MG disintegrating tabletIndications: Nausea Place 1 tablet on the tongue Every 8 (Eight) Hours As Needed for Nausea or Vomiting. 20 tablet 5 04/20/20 24 Active vitamin D (ERGOCALCIFEROL) 1.25 MG (49430 UT) capsule capsuleIndications :Vitamin D deficiency Take [...] a without status migrainosus, not intractable 05/01/2024 Family History Medical History Relation Name Comments [...] 0-49 (1 of 2 - PCV) 2020 HEMOGLOBIN A1C 12/29/2024 06/30/2024, 07/09/2023, 08/11/2022, Additional history exists ANNUAL PHYSICAL 04/20/2025 04/20/2024 INFLUENZA VACCINE 04/21/2025 06/21/2021 PAP SMEAR 09/21/2025 09/21/2022 (Patient-Reported (Performed [...] Hemoglobin A1C 9.3(A) 4.5 - 5.7 % [facility] Lot Number [id number] [facility] Expiration Date 03/10/26 [facility] Blood 06/30/2024 4:30 PM EDT Red CHEN POINT OF CARE TEST ORDERABLES Final Result [facility]
[address] [place] [phone], from Last 3 Months or Most Recently Relevant to Health Maintenance Insurance [employer]ET[employer] Care Teams Bookkeeper Assistant Relationship Specialty Start Date End Date Red [place] [address] PCP - General Physician Adoption Counselor 04/20/24
[2025-09-12 09:56] LABS: Hematocrit 39.6 % (37.0-47.0); Hemoglobin 13.3 g/dL (12.2-16.2); Immature Granulocytes % 0.2 %; Mean Corpuscular HGB Conc 33.6 g/dL (31.8-35.4); Mean Corpuscular Hemoglobin 29.2 pg (27.0-31.2); Mean Corpuscular Volume 87.0 fl (81-99); Nucleated Red Blood Cells % 0 %; Platelet Count 328 K/mm3 (142-424); Red Blood Count 4.55 M/mm3 (4.20-5.40); Red Cell Distribution Width-SD 39.0 fL; White Blood Count 6.4 K/mm3 (4.8-10.8)
[2025-09-12 10:38] LABS: Albumin Level 5.0 g/dl (3.5-5.0)
[2025-09-12 10:39] LABS: Chloride 106 mmol/L (98-107); Potassium 3.9 mmoL/L (3.5-5.1); Sodium 142 mmol/L (136-145)
[2025-09-12 10:41] LABS: Alanine Aminotransferase 66 U/L (12-78); Alkaline Phosphatase 72 U/L (38-126); Anion Gap 15.9 mEq/L (5-15); Aspartate Amino Transferase 46 U/L (14-36); Bilirubin,Total 0.4 mg/dl (0.2-1.3); Blood Urea Nitrogen 13 mg/dl (7-17); Carbon Dioxide 24 mmol/L (22.0-30.0); Creatinine,Serum 0.50 mg/dl (0.52-1.04); Estimated Glomerular Filt Rate 152 ml/min (>60); GFR (African American) 183 ML/MIN (>60)
[2025-09-12 10:42] LABS: Albumin/Globulin Ratio 2.0 (1.1-1.8); Calcium 10.4 mg/dl (8.4-10.2); Cholesterol 111 mg/dl (140-200); Globulin 2.5 g/dL (1.3-3.2); Glucose 96 mg/dl (74-100); HDL Cholesterol 34 mg/dl (40-60); Iron 86 ug/dL (37-170); Total Protein,Serum 7.5 g/dl (6.3-8.2); Triglycerides 71 mg/dl (30-150)
[2025-09-12 10:52] LABS: INR 1.13 (0.9-1.1); Prothrombin Time 12.4 seconds (10.1-12.5)
[2025-09-12 10:59] LABS: T4 (Thyroxine) 9.6 ug/dl (5.53-11.0)
[2025-09-12 11:00] LABS: Total Iron Binding Capacity 273 ug/dL (265-497)
[2025-09-12 11:13] LABS: Thyroid Stimulating Hormone 0.96 uIU/mL (0.465-4.68)
== END 2025-09-12 23:59 | disposition home or self-care (01) ==
LOC: LAB 09:35
PROVIDERS: PCP Family Medicine; Visit Provider Family Medicine
DX: D69.9 Hemorrhagic condition, unspecified (principal); E11.9 Type 2 diabetes mellitus without complications; I10 Essential (primary) hypertension
CPT/HCPCS: 36415; 80053; 80061; 83540; 83550; 84436; 84443; 85025; 85610